=== PATIENT | male | born 1980 | race Caucasian/White ===

== ENCOUNTER → 2022-04-06 | Day surgery (SDC) | payer OTHER ==
[~2022-04-06] MED LIST: ADVIL200 M1 PO; FENTANYL CITRATE/PF 100MCG/2 ML INJ ONE; MIDAZOLAM HCL 5 MG/ML VIAL ONE; OMEPRAZOLE40 MG PO; PROCTOCORT28.4 GM TOP; PROPOFOL IV EMULSION 10 MG/ML 20 ML VIAL ONE; VALTREX1000 MG PO
[2022-04-06 11:25] VITALS: BP 127/89
== END | disposition home or self-care (01) ==
LOC: OR 08:43
PROVIDERS: ATTEND Internal Medicine Gastroenterology
DX: K29.50 Unspecified chronic gastritis without bleeding (principal); K31.7 Polyp of stomach and duodenum; K22.70 Barrett's esophagus without dysplasia; K31.89 Other diseases of stomach and duodenum; K20.90 Esophagitis, unspecified without bleeding; K44.9 Diaphragmatic hernia without obstruction or gangrene; K57.30 Diverticulosis of large intestine without perforation or abscess without bleeding; K64.8 Other hemorrhoids; Z71.3 Dietary counseling and surveillance; D72.820 Lymphocytosis (symptomatic); A60.00 Herpesviral infection of urogenital system, unspecified; R03.0 Elevated blood-pressure reading, without diagnosis of hypertension; Z71.89 Other specified counseling; Z79.899 Other long term (current) drug therapy; Z68.31 Body mass index [BMI] 31.0-31.9, adult
CPT/HCPCS: 43239; 45378; 88305; 88342; J2250; J3010; 88312